=== PATIENT | female | born 1990 | race American Indian/Alaskan Native ===

== ENCOUNTER 2018-10-06 13:54 | Emergency (ER) | payer SELFPAY ==
--- NOTE | 2018-10-06 14:41 | Emergency Department Report ---
ED Dysuria HPI - HPI Chief Complaint: Abdominal Pain Stated Complaint: ABDOMINAL PAIN Time Seen by Provider: 10/06/18 14:15 Duration: 1 Day Location of Discomfort: Urethra (dysuria) Severity: Mild Symptoms: Dysuria: No, Frequency: No, Suprapubic Pain: No, Flank Pain: No, Fever: No, Hematuria: No, Abdominal Pain: No, Previous UTI's: No Other History: History this 28-year-old female who comes to the ER today with vaginal discharge consistent with her usual yeast infections. She is here requesting Diflucan. Her last menstrual cycle was 2 weeks ago. She is not concerned for STDs. She has no medical history is on no medications and denies alcohol drugs or tobacco. ED Review of Systems ROS: Stated complaint: ABDOMINAL PAIN Other details as noted in HPI Comment: All other systems reviewed and negative ED Past Medical Hx - Past Medical History Previous Medical History?: Yes Additional medical history: ovarian cysts - Surgical History Past Surgical History?: Yes Additional Surgical History: ovarian cyst - Medications Home Medications: Home Medications Medication Instructions Recorded Confirmed Last Taken Type Fluconazole [Diflucan TAB] 150 mg PO ONCE #1 tablet 10/06/18 Unknown Rx Dysuria Exam - Exam General: Vital signs noted. No distress. Alert and acting appropriately. Exam: Yes Moist Mucous Membranes, No CVA Tenderness, No Abdominal Tenderness, No Rigidity or Guarding ED Medical Decision Making - Medical Decision Making Labs 10/06/18 15:41 Urine Color Yellow Urine Turbidity Slightly-cloudy Urine pH 7.0 Ur Specific [place] 1.029 Urine Protein 30 mg/dl Urine Glucose (UA) Neg Urine Ketones Neg Urine Blood Neg Urine Nitrite Neg Ur Reducing Substances Not Reportable Urine Bilirubin Neg Urine Ictotest Not Reportable Urine Urobilinogen < 2.0 Ur Leukocyte Esterase Neg Urine WBC (Auto) 1.0 Urine RBC (Auto) 9.0 U Epithel Cells (Auto) 17.0 H Urine Bacteria (Auto) 1+ Urine Mucus 3+ Urine HCG, Qual Negative PT HERE REQUESTING A DIFLUCAN FOR HER USUAL VAG YEAST INFECTION. DC HOME WITH GA PLAN OF CARE Lab Results 10/06/18 Range/Units 15:41 Urine Color Yellow (Yellow) Urine Turbidity Slightly-cloudy (Clear) Urine pH 7.0 (5.0-7.0) Ur Specific [place] 1.029 (1.003-1.030) Urine Protein 30 mg/dl (Negative) mg/dL Urine Glucose (UA) Neg (Negative) mg/dL Urine Ketones Neg (Negative) mg/dL Urine Blood Neg (Negative) Urine Nitrite Neg (Negative) Ur Reducing Substances Not Reportable Urine Bilirubin Neg (Negative) Urine Ictotest Not Reportable Urine Urobilinogen < 2.0 (<2.0) mg/dL Ur Leukocyte Esterase Neg (Negative) Urine WBC (Auto) 1.0 (0.0-6.0) /HPF Urine RBC (Auto) 9.0 (0.0-6.0) /HPF U Epithel Cells (Auto) 17.0 H (0-13.0) /HPF Urine Bacteria (Auto) 1+ (Negative) /HPF Urine Mucus 3+ /HPF Urine HCG, Qual Negative (Negative) Critical care attestation.: If time is entered above; I have spent that time in minutes in the direct care of this critically ill patient, excluding procedure time. ED Disposition Clinical Impression: Vaginitis Disposition: TO HOME OR SELFCARE Is pt being admited?: No Does the pt Need Aspirin: No Condition: Stable Instructions: Vaginitis (ED) Additional Instructions: DIET TOLERATED MEDS ORDERED TODAY IN ER FOLLOW INSTRUCTIONS ON THE BOTTLE FOLLOW UP PCP WITHIN 48 HOURS TO ENSURE YOU ARE GETTING BETTER ACTIVITY TOLERATED MOTRIN OR TYLENOL FOR PAIN OR FEVER RETURN TO THE ER FOR WORSENING SYMPTOMS NOT RELIEVED BY YOUR MEDICATIONS. Prescriptions: Fluconazole [Diflucan TAB] 150 mg PO ONCE #1 tablet Referrals: ZULEIMA MAS MD [Primary Care Provider] - 3-5 Days [facility] [Outside] - 3-5 Days Time of Disposition: 16:04
[2018-10-06 15:56] LABS: HCG Qualitative,Urine Negative (Negative)
[2018-10-06 15:58] LABS: Bacteria,Urine 1+ /HPF (Negative); Bilirubin,Urine NEG (Negative); Blood,Urine NEG (Negative); Color,Urine Yellow (Yellow); Mucus,Urine 3+ /HPF; Urobilinogen,Urine < 2.0 mg/dL (<2.0)
== END 2018-10-06 16:14 | disposition home or self-care (01) ==
LOC: ED 13:54
DX: N76.0 Acute vaginitis (principal); B96.89 Other specified bacterial agents as the cause of diseases classified elsewhere; Z91.010 Allergy to peanuts; Z91.018 Allergy to other foods
CPT/HCPCS: 81001; 81025; 87591; 99283

== ENCOUNTER 2018-12-25 07:34 | Emergency (ER) | payer MEDICAID ==
[2018-12-25 08:17] LABS: Basophils % (Auto) 0.8 % (0.0-1.8); Eosinophils # (Auto) 0.1 K/mm3 (0.0-0.4); Eosinophils % (Auto) 1.4 % (0.0-4.3); Hematocrit 41.6 % (30.3-42.9); Hemoglobin 13.5 gm/dl (10.1-14.3); Lymphocytes # (Auto) 2.7 K/mm3 (1.2-5.4); Lymphocytes % (Auto) 47.8 % (13.4-35.0); Mean Corpuscular HGB Conc 33 % (30-34); Mean Corpuscular Volume 94 fl (79-97); Monocytes # (Auto) 0.5 K/mm3 (0.0-0.8); Monocytes % (Auto) 8.1 % (0.0-7.3); Platelet Count 219 K/mm3 (140-440); Red Blood Count 4.42 M/mm3 (3.65-5.03); Red Cell Distribution Width 12.5 % (13.2-15.2)
[2018-12-25] MEDS ORDERED: ZOFRAN IV ONE (08:21)
[2018-12-25] MEDS ORDERED: NACL 0.9% 1000 ML 1,000 ML IV ONE (08:21)
[2018-12-25] MEDS ORDERED: TORADOL IV ONE (08:21)
[2018-12-25 08:40] LABS: Alanine Aminotransferase 16 units/L (7-56); BUN/Creatinine Ratio 18; Blood Urea Nitrogen 11 mg/dL (7-17); Calcium 8.9 mg/dL (8.4-10.2); Hemolysis Index 23
[2018-12-25 10:02] LABS: Bilirubin,Urine NEG (Negative); Blood,Urine NEG (Negative); Color,Urine Yellow (Yellow); Mucus,Urine FEW /HPF; Protein,Urine <15 mg/dL mg/dL (Negative); Urobilinogen,Urine < 2.0 mg/dL (<2.0)
--- NOTE | 2018-12-25 10:36 | Cat Scan Report ---
CT ABDOMEN AND PELVIS WITH CONTRAST HISTORY: Right lower quadrant abdominal pain with rebound COMPARISON: None. TECHNIQUE: Axial CT images were obtained through the abdomen and pelvis after 100 cc of Omnipaque 300 intravenously. Sagittal and coronal reformatted images. All CT scans at this location are performed using CT dose reduction for ALARA by means of automated exposure control. FINDINGS: CT ABDOMEN: Lung Bases: Clear. Liver: No significant abnormality. Biliary: No significant abnormality. Spleen: No significant abnormality. Unenlarged. Pancreas: No significant abnormality. Adrenals: No significant abnormality. Kidneys: There is mild bilateral renal ectopia. 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 There is normal enhancement of both kidneys otherwise. No focal lesion or hydronephrosis. Lymphatics: No lymphadenopathy. Vasculature: No significant abnormality. Bowel/Peritoneum: No significant abnormality. No free air. No free fluid. Normal appendix. CT PELVIS: : A 2.5 x 1.6 cm left ovarian cyst is identified. The uterus and right ovary are unremarkable. Norm al bladder. Osseous Structures: No significant abnormality. Additional Findings: None IMPRESSION: 2.5 x 1.6 cm left ovarian cyst. No acute inflammatory process is identified in the right lower quadrant. Incidental mild bilateral renal ectopia. See above. Signer Name: Roddy Rodriguez Jr, MD Signed: 12/25/2018 10:32 AM Workstation Name: [id number]
--- NOTE | 2018-12-25 11:00 | Emergency Department Report ---
ED Abdominal Pain HPI - General Chief Complaint: Abdominal Pain Stated Complaint: ABD PAIN Time Seen by Provider: 12/25/18 08:21 Source: patient Mode of arrival: Ambulatory Limitations: No Limitations - History of Present Illness Initial Comments: Patient is a 28-year-old female who is presenting with some abd discomfort for approximately week. Patient states that she's had some constipation in that timeframe. Patient has several episodes of nausea and vomiting when the discomfort began. Patient states that pain became more prominent 2 days ago. Pain is located in the right lower quadrant. There is no fevers chills, nausea vomiting or diarrhea present. Patient also states she's had no dysuria vaginal discharge or abnormal vaginal bleeding. Severity scale (0 -10): 7 - Related Data Previous Rx's Medication Instructions Recorded Last Taken Type Fluconazole [Diflucan TAB] 150 mg PO ONCE #1 tablet 10/06/18 Unknown Rx Docusate Sodium [Colace] 100 mg PO BID #30 capsule 12/25/18 Unknown Rx traMADol [Ultram] 50 mg PO Q6HR PRN #12 tablet 12/25/18 Unknown Rx Allergies Allergy/AdvReac Type Severity Reaction Status Date / Time grass pollen Allergy Hives Verified 10/06/18 13:56 onion Allergy Swelling Verified 10/06/18 13:56 walnut Allergy Swelling Verified 10/06/18 13:56 ED Review of Systems ROS: Stated complaint: ABD PAIN Other details as noted in HPI Comment: All other systems reviewed and negative ED Past Medical Hx - Past Medical History Previous Medical History?: Yes Additional medical history: ovarian cysts - Surgical History Past Surgical History?: Yes Additional Surgical History: ovarian cyst; ectopic - Social History Smoking Status: Never Smoker Substance Use Type: None - Medications Home Medications: Home Medications Medication Instructions Recorded Confirmed Last Taken Type Fluconazole [Diflucan TAB] 150 mg PO ONCE #1 tablet 10/06/18 Unknown Rx Docusate Sodium [Colace] 100 mg PO BID #30 capsule 12/25/18 Unknown Rx traMADol [Ultram] 50 mg PO Q6HR PRN #12 tablet 12/25/18 Unknown Rx ED Physical Exam - General Limitations: No Limitations General appearance: alert, in no apparent distress - Head Head exam: Present: atraumatic, normocephalic - Eye Eye exam: Present: normal appearance - ENT ENT exam: Present: mucous membranes moist - Neck Neck exam: Present: normal inspection - Respiratory Respiratory exam: Present: normal lung sounds bilaterally. Absent: respiratory distress, wheezes, rales, rhonchi - Cardiovascular Cardiovascular Exam: Present: regular rate, normal rhythm, normal heart sounds. Absent: systolic murmur, diastolic murmur, rubs, gallop - GI/Abdominal GI/Abdominal exam: Present: soft, tenderness (RLQ), rebound, normal bowel sounds. Absent: distended, guarding, rigid - Extremities Exam Extremities exam: Present: normal inspection - Back Exam Back exam: Present: normal inspection - Neurological Exam Neurological exam: Present: alert, oriented X3 - Psychiatric Psychiatric exam: Present: normal affect, normal mood - Skin Skin exam: Present: warm, dry, intact, normal color. Absent: rash ED Course Vital Signs 12/25/18 12/25/18 12/25/18 07:41 09:05 09:43 Temperature 98.1 F Pulse Rate 78 Respiratory 16 16 16 Rate Blood Pressure 104/76 O2 Sat by Pulse 100 Oximetry ED Medical Decision Making - Lab Data Result diagrams: 12/25/18 07:53 12/25/18 07:53 Lab Results 12/25/18 12/25/18 12/25/18 Range/Units 07:53 07:53 07:53 WBC 5.6 (4.5-11.0) K/mm3 RBC 4.42 (3.65-5.03) M/mm3 Hgb 13.5 (10.1-14.3) gm/dl Hct 41.6 (30.3-42.9) % MCV 94 (79-97) fl MCH 31 (28-32) pg MCHC 33 (30-34) % RDW 12.5 L (13.2-15.2) % Plt Count 219 (140-440) K/mm3 Lymph % (Auto) 47.8 H (13.4-35.0) % [place] % (Auto) 8.1 H (0.0-7.3) % Eos % (Auto) 1.4 (0.0-4.3) % Baso % (Auto) 0.8 (0.0-1.8) % Lymph # 2.7 (1.2-5.4) K/mm3 [place] # 0.5 (0.0-0.8) K/mm3 Eos # 0.1 (0.0-0.4) K/mm3 Baso # 0.0 (0.0-0.1) K/mm3 Seg Neutrophils % 41.9 (40.0-70.0) % Seg Neutrophils # 2.3 (1.8-7.7) K/mm3 Sodium 137 (137-145) mmol/L Potassium 4.3 (3.6-5.0) mmol/L Chloride 100.6 (98-107) mmol/L Carbon Dioxide 25 (22-30) mmol/L Anion Gap 16 mmol/L BUN 11 (7-17) mg/dL Creatinine 0.6 L (0.7-1.2) mg/dL Estimated GFR > 60 ml/min BUN/Creatinine Ratio 18 % Glucose 96 (65-100) mg/dL Calcium 8.9 (8.4-10.2) mg/dL Total Bilirubin 0.50 (0.1-1.2) mg/dL AST 17 (5-40) units/L ALT 16 (7-56) units/L Alkaline Phosphatase 66 (35-129) units/L Total Protein 7.0 (6.3-8.2) g/dL Albumin 4.0 (3.9-5) g/dL Albumin/Globulin Ratio 1.3 % HCG, Qual Negative (Negative) Urine Color (Yellow) Urine Turbidity (Clear) Urine pH (5.0-7.0) Urine Protein (Negative) mg/dL Urine Glucose (UA) (Negative) mg/dL Urine Ketones (Negative) mg/dL Urine Blood (Negative) Urine Nitrite (Negative) Urine Bilirubin (Negative) Urine Urobilinogen (<2.0) mg/dL Ur Leukocyte Esterase (Negative) Urine WBC (Auto) (0.0-6.0) /HPF Urine RBC (Auto) (0.0-6.0) /HPF U Epithel Cells (Auto) (0-13.0) /HPF Urine Mucus /HPF 12/25/18 Range/Units 09:40 WBC (4.5-11.0) K/mm3 RBC (3.65-5.03) M/mm3 Hgb (10.1-14.3) gm/dl Hct (30.3-42.9) % MCV (79-97) fl MCH (28-32) pg MCHC (30-34) % RDW (13.2-15.2) % Plt Count (140-440) K/mm3 Lymph % (Auto) (13.4-35.0) % [place] % (Auto) (0.0-7.3) % Eos % (Auto) (0.0-4.3) % Baso % (Auto) (0.0-1.8) % Lymph # (1.2-5.4) K/mm3 [place] # (0.0-0.8) K/mm3 Eos # (0.0-0.4) K/mm3 Baso # (0.0-0.1) K/mm3 Seg Neutrophils % (40.0-70.0) % Seg Neutrophils # (1.8-7.7) K/mm3 Sodium (137-145) mmol/L Potassium (3.6-5.0) mmol/L Chloride (98-107) mmol/L Carbon Dioxide (22-30) mmol/L Anion Gap mmol/L BUN (7-17) mg/dL Creatinine (0.7-1.2) mg/dL Estimated GFR ml/min BUN/Creatinine Ratio % Glucose (65-100) mg/dL Calcium (8.4-10.2) mg/dL Total Bilirubin (0.1-1.2) mg/dL AST (5-40) units/L ALT (7-56) units/L Alkaline Phosphatase (35-129) units/L Total Protein (6.3-8.2) g/dL Albumin (3.9-5) g/dL Albumin/Globulin Ratio % HCG, Qual (Negative) Urine Color Yellow (Yellow) Urine Turbidity Clear (Clear) Urine pH 7.0 (5.0-7.0) Urine Protein <15 mg/dl (Negative) mg/dL Urine Glucose (UA) Neg (Negative) mg/dL Urine Ketones Neg (Negative) mg/dL Urine Blood Neg (Negative) Urine Nitrite Neg (Negative) Urine Bilirubin Neg (Negative) Urine Urobilinogen < 2.0 (<2.0) mg/dL Ur Leukocyte Esterase Neg (Negative) Urine WBC (Auto) 1.0 (0.0-6.0) /HPF Urine RBC (Auto) 8.0 (0.0-6.0) /HPF U Epithel Cells (Auto) 2.0 (0-13.0) /HPF Urine Mucus Few /HPF - Radiology Data [facility] [address] [place] [address] Cat Scan Report Signed Patient: DANNI CORDOBA MR#: [id number] : 1990 Acct:[id number] Age/Sex: 28 / F ADM Date: 12/25/18 Loc: ED Attending Dr: Ordering Physician: FAUSTO PINO MD Date of Service: 12/25/18 Procedure(s): CT abdomen pelvis w con Accession Number(s): [id number] cc: FAUSTO PINO MD CT ABDOMEN AND PELVIS WITH CONTRAST HISTORY: Right lower quadrant abdominal pain with rebound COMPARISON: None. TECHNIQUE: Axial CT images were obtained through the abdomen and pelvis after 100 cc of Omnipaque 300 intravenously. Sagittal and coronal reformatted images. All CT scans at this location are performed using CT dose reduction for ALARA by means of automated exposure control. FINDINGS: CT ABDOMEN: Lung Bases: Clear. Liver: No significant abnormality. Biliary: No significant abnormality. Spleen: No significant abnormality. Unenlarged. Pancreas: No significant abnormality. Adrenals: No significant abnormality. Kidneys: There is mild bilateral renal ectopia. 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 There is normal enhancement of both kidneys otherwise. No focal lesion or hydronephrosis. Lymphatics: No lymphadenopathy. Vasculature: No significant abnormality. Bowel/Peritoneum: No significant abnormality. No free air. No free fluid. Normal appendix. CT PELVIS: : A 2.5 x 1.6 cm left ovarian cyst is identified. The uterus and right ovary are unremarkable. Normal bladder. Osseous Structures: No significant abnormality. Additional Findings: None IMPRESSION: 2.5 x 1.6 cm left ovarian cyst. No acute inflammatory process is identified in the right lower quadrant. Incidental mild bilateral renal ectopia. See above. Signer Name: Roddy Miramontes Jr, MD Signed: 12/25/2018 10:32 AM Workstation Name: [id number] Transcribed By: TTR Dictated By: RODDY MIRAMONTES JR, MD Electronically Authenticated By: RODDY MIRAMONTES JR, MD Signed Date/Time: 12/25/18 1032 - Medical Decision Making The patient will be treated for some mild constipation. Patient does have a left-sided ovarian cyst and could have possibly had a right-sided ovarian cyst that ruptured causing increased pain 2 days ago. Patient be referred to [facility] for further evaluation. Patient's CT shows no surgical abnormality at this time. Patient is stable for discharge home. Critical care attestation.: If time is entered above; I have spent that time in minutes in the direct care of this critically ill patient, excluding procedure time. ED Disposition Clinical Impression: Abdominal pain Qualifiers: Abdominal location: right lower quadrant Qualified Code(s): R10.31 - Right lower quadrant pain Ovarian cyst Qualifiers: Laterality: left Qualified Code(s): N83.202 - Unspecified ovarian cyst, left side Constipation Qualifiers: Constipation type: slow transit constipation Qualified Code(s): K59.01 - Slow transit constipation Disposition: TO HOME OR SELFCARE Is pt being admited?: No Does the pt Need Aspirin: No Condition: Stable Instructions: Abdominal Pain (ED), Ovarian Cyst (ED), Constipation (ED), High Fiber Diet (ED) Referrals: TRICE CORDOBA MD [Staff Physician] - 3-5 Days Time of Disposition: 11:02
[2018-12-25 11:23] VITALS: BP 99/72
== END 2018-12-25 11:23 | disposition home or self-care (01) ==
LOC: ED 07:34
DX: N83.202 Unspecified ovarian cyst, left side (principal); K59.00 Constipation, unspecified; Z91.018 Allergy to other foods; Z79.899 Other long term (current) drug therapy
CPT/HCPCS: 36415; 74177; 80053; 81001; 84703; 85025; 96361; 96374; 96375; 99284; J1885; J2405; J7030; Q9967

== ENCOUNTER 2018-12-27 16:59 | Emergency (ER) | payer MEDICAID, OTHER ==
--- NOTE | 2018-12-27 17:11 | Event Note ---
ED Screening Note Date of service: 12/27/18 Time: 17:09 ED Screening Note: 28 y o f presents with low pelvic pain was seen friday CT scan lanbs and Urine completed still have worseing pain This initial assessment/diagnostic orders/clinical plan/treatment(s) is/are subject to change based on patients health status, clinical progression and re- assessment by fellow clinical providers in the ED. Further treatment and workup at subsequent clinical providers discretion. Patient/guardian urged not to elope from the ED as their condition may be serious if not clinically assessed and managed. Initial orders include: US ordered
--- NOTE | 2018-12-27 19:16 | Ultrasound Report ---
US transvaginal, US pelvic complete INDICATION / CLINICAL INFORMATION: pelv pain. COMPARISON: None available. FINDINGS: Transabdominal and transvaginal imaging were performed. Uterus is retroverted but otherwise unremarkable. Endometrial stripe measures 9 mm in thickness. Right ovary contains small follicular cysts. Left ovary contains a 3 cm cyst, which is slightly compl ex. No free fluid. IMPRESSION: 1. Slightly complex 3 cm left ovarian cyst. Signer Name: Ezequiel Neal MD Signed: 12/27/2018 7:11 PM Workstation Name: [id number]
[2018-12-27] MEDS ORDERED: MORPHINE IV ONE (19:45)
[2018-12-27] MEDS ORDERED: ZOFRAN IV ONE (19:45)
[2018-12-27] MEDS ORDERED: NACL 0.9% 1000 ML 1,000 ML IV ONE (19:45)
[2018-12-27] MEDS ORDERED: BENADRYL ONE (20:17)
[2018-12-27 20:42] LABS: Basophils # (Auto) 0.3 K/mm3 (0.0-0.1); Eosinophils # (Auto) 0.1 K/mm3 (0.0-0.4); Eosinophils % (Auto) 0.7 % (0.0-4.3); Hematocrit 41.8 % (30.3-42.9); Lymphocytes # (Auto) 3.3 K/mm3 (1.2-5.4); Lymphocytes % (Auto) 38.1 % (13.4-35.0); Mean Corpuscular HGB Conc 34 % (30-34); Mean Corpuscular Volume 94 fl (79-97); Monocytes # (Auto) 0.5 K/mm3 (0.0-0.8); Monocytes % (Auto) 5.3 % (0.0-7.3); Red Blood Count 4.42 M/mm3 (3.65-5.03); Red Cell Distribution Width 12.3 % (13.2-15.2)
[2018-12-27 20:43] LABS: Platelet Count 199 K/mm3 (140-440)
[2018-12-27 21:17] LABS: Alanine Aminotransferase 15 units/L (7-56); Albumin 4.1 g/dL (3.9-5); BUN/Creatinine Ratio 13; Blood Urea Nitrogen 8 mg/dL (7-17); Calcium 9.3 mg/dL (8.4-10.2); Hemolysis Index 13
--- NOTE | 2018-12-27 21:25 | Cat Scan Report ---
CT abdomen pelvis w con INDICATION: RLQ pain. TECHNIQUE: All CT scans at this location are performed using CT dose reduction for ALARA by means of automated e xposure control. COMPARISON: 12/25/2018 FINDINGS: Lung bases are clear. Liver, gallbladder, spleen and pancreas are unremarkable. Mild renal ectopia bu t no actual horseshoe kidney. Kidneys are intrinsically unremarkable. Normal adrenals. Abdominal aort a is normal in size. Pelvis Normal appendix. Left ovarian cyst appears to have increased in size, now measuring 3.4 cm. Again, no free fluid. Uterus and right ovary are negative. Urinary bladder is unremarkable. No acute skeletal lesions. IMPRESSION: 1. Left ovarian cyst has increased slightly in size, from 2.5 cm maximum diameter to 3.4 cm. 2. Normal appendix. 3. Renal ectopia, as described, but no evidence of ureteral obstruction. Signer Name: Ezequiel Neal MD Signed: 12/27/2018 9:20 PM Workstation Name: [id number]
[2018-12-27 21:27] LABS: Bilirubin,Urine NEG (Negative); Blood,Urine SM (Negative); Color,Urine Straw (Yellow); Protein,Urine <15 mg/dL mg/dL (Negative); Urobilinogen,Urine < 2.0 mg/dL (<2.0); WBC,Urine < 1.0 /HPF (0.0-6.0)
[2018-12-27] MEDS ORDERED: TORADOL IV ONE (22:49)
--- NOTE | 2018-12-28 00:59 | Emergency Department Report ---
ED Abdominal Pain HPI - General Chief Complaint: Abdominal Pain Stated Complaint: STOMACH PAIN Time Seen by Provider: 12/27/18 17:09 Source: patient Mode of arrival: Ambulatory Limitations: No Limitations - History of Present Illness Initial Comments: Patient is a [age]-year-old female with no past medical history who presents to the ED with acute onset persistence of the right lower quadrant abdominal pain with intermittent nausea and vomiting for the last 1 week, worse in the last 2 days. Patient was initially treated for the same about 2 days ago and discharged home on pain medications after being diagnosed with Ovarian cyst. Patient states that in the last 24 hours the right lower quadrant pain has worsened and that she is unable to sit still or lay down because of severe right lower quadrant pain. Patient denies vaginal bleeding, vaginal discharge, dysuria, urinary frequency and urgency, fever, chills, dizziness, headache, chest pain, low back pain, hematuria or traumatic injury. MD Complaint: abdominal pain (RLQ) -: Sudden, week(s) (1) Location: RLQ, suprapubic Radiation: RLQ, suprapubic Migration to: no migration Severity: severe Severity scale (0 -10): 9 Quality: aching, sharp Consistency: constant Improves With: nothing Worsens With: movement Associated Symptoms: denies other symptoms, nausea, vomiting. denies: diarrhea, fever, chills, constipation, hematemesis, hematochezia, melena, anorexia, other Treatments Prior to Arrival: NSAIDs - Related Data LMP Date: 12/20/18 Previous Rx's Medication Instructions Recorded Last Taken Type Fluconazole [Diflucan TAB] 150 mg PO ONCE #1 tablet 10/06/18 Unknown Rx Docusate Sodium [Colace] 100 mg PO BID #30 capsule 12/25/18 Unknown Rx traMADol [Ultram] 50 mg PO Q6HR PRN #12 tablet 12/25/18 Unknown Rx Ketorolac [Toradol] 10 mg PO Q8H PRN #20 tablet 12/28/18 Unknown Rx Ondansetron [Zofran Odt] 4 mg PO Q6HR PRN #15 tab.rapdis 12/28/18 Unknown Rx Allergies Allergy/AdvReac Type Severity Reaction Status Date / Time grass pollen Allergy Hives Verified 10/06/18 13:56 onion Allergy Swelling Verified 06/18/19 13:56 walnut Allergy Swelling Verified 10/06/18 13:56 ED Review of Systems ROS: Stated complaint: STOMACH PAIN Other details as noted in HPI Constitutional: denies: chills, fever Eyes: denies: eye pain, eye discharge, vision change ENT: denies: ear pain, throat pain Respiratory: denies: cough, shortness of breath, wheezing Cardiovascular: denies: chest pain, palpitations Endocrine: no symptoms reported Gastrointestinal: abdominal pain, nausea, vomiting. denies: diarrhea Genitourinary: denies: urgency, dysuria, discharge Musculoskeletal: denies: back pain, joint swelling, arthralgia Skin: denies: rash, lesions Neurological: denies: headache, weakness, paresthesias Psychiatric: denies: anxiety, depression Hematological/Lymphatic: denies: easy bleeding, easy bruising ED Past Medical Hx - Past Medical History Previous Medical History?: Yes Additional medical history: ovarian cysts - Surgical History Past Surgical History?: Yes Additional Surgical History: ovarian cyst; ectopic - Social History Smoking Status: Never Smoker Substance Use Type: None - Medications Home Medications: Home Medications Medication Instructions Recorded Confirmed Last Taken Type Fluconazole [Diflucan TAB] 150 mg PO ONCE #1 tablet 10/06/18 Unknown Rx Docusate Sodium [Colace] 100 mg PO BID #30 capsule 12/25/18 Unknown Rx traMADol [Ultram] 50 mg PO Q6HR PRN #12 tablet 12/25/18 Unknown Rx Ketorolac [Toradol] 10 mg PO Q8H PRN #20 tablet 12/28/18 Unknown Rx Ondansetron [Zofran Odt] 4 mg PO Q6HR PRN #15 tab.rapdis 12/28/18 Unknown Rx ED Physical Exam - General Limitations: No Limitations General appearance: alert, in no apparent distress - Head Head exam: Present: atraumatic, normocephalic, normal inspection - Eye Eye exam: Present: normal appearance, PERRL, EOMI Pupils: Present: normal accommodation - ENT ENT exam: Present: normal exam, normal orophraynx, mucous membranes moist, TM's normal bilaterally, normal external ear exam - Neck Neck exam: Present: normal inspection, full ROM - Respiratory Respiratory exam: Present: normal lung sounds bilaterally. Absent: respiratory distress, wheezes, rales, stridor, chest wall tenderness - Cardiovascular Cardiovascular Exam: Present: regular rate, normal rhythm, normal heart sounds. Absent: systolic murmur, diastolic murmur, rubs, gallop - GI/Abdominal GI/Abdominal exam: Present: soft, tenderness (RLQ tenderness), normal bowel sounds. Absent: guarding, rebound, hyperactive bowel sounds, hypoactive bowel sounds, organomegaly - Rectal Rectal exam: Present: deferred - External exam: Present: normal external exam Speculum exam: Present: cervical discharge Bi-manual exam: Present: normal bi-manual exam. Absent: cervical motion tendernes, adnexal tenderness, uterine tenderness - Extremities Exam Extremities exam: Present: normal inspection, full ROM, normal capillary refill - Back Exam Back exam: Present: normal inspection, full ROM. Absent: tenderness, CVA tenderness (R), CVA tenderness (L), muscle spasm, paraspinal tenderness - Neurological Exam Neurological exam: Present: alert, oriented X3, CN II-XII intact, normal gait, reflexes normal - Psychiatric Psychiatric exam: Present: normal affect, normal mood - Skin Skin exam: Present: warm, dry, intact, normal color. Absent: rash ED Course Vital Signs 12/27/18 12/27/18 17:16 23:14 Temperature 98.3 F Pulse Rate 79 Respiratory 18 16 Rate Blood Pressure 111/70 O2 Sat by Pulse 99 Oximetry - Reevaluation(s) Reevaluation #1: 12/28/18 00:59 This is a 28-year-old -[place] female who presented to the ED via right lower quadrant abdominal pain. In the ED, patient is alert and oriented 3 and is not in distress but appears to be in pain. Lab test results are reviewed and are all nonactionable including urinalysis. The abdomen pelvis CT scan with contrast shows a left ovarian cyst that has increased slightly in size, from 2.5 cm maximum diameter to 3.4 cm. The appendix is normal in appearance. The transvaginal ultrasound shows a slightly complex 3 cm left ovarian cyst. Patient was treated in the ED for pain, and on reevaluation, patient's pain is well controlled with medications. Patient was discharged home on medications including Toradol and Zofran since the patient really has a prescription for some recently given for the same complaint 2 days ago. Patient was advised to follow-up with her primary care physician in [facility] physician in 5-7 days for reevaluation or return to the ED immediately if symptoms get worse. 12/28/18 01:05 ED Medical Decision Making - Lab Data Result diagrams: 12/27/18 20:12 12/27/18 20:12 - Radiology Data Radiology results: report reviewed, image reviewed Findings [facility] [address] [place] [address] Cat Scan Report Signed Patient: DANNI CORDOBA MR#: [id number] : 1990 Acct:[id number] Age/Sex: 28 / F ADM Date: 12/27/18 Loc: ED Attending Dr: Ordering Physician: ARMANDO HIGGINS Date of Service: 12/27/18 Procedure(s): CT abdomen pelvis w con Accession Number(s): [id number] cc: ARMANDO HGIGINS CT abdomen pelvis w con INDICATION: RLQ pain. TECHNIQUE: All CT scans at this location are performed using CT dose reduction for ALARA by means of automated exposure control. COMPARISON: 12/25/2018 FINDINGS: Lung bases are clear. Liver, gallbladder, spleen and pancreas are unremarkable. Mild renal ectopia but no actual horseshoe kidney. Kidneys are intrinsically unremarkable. Normal adrenals. Abdominal aorta is normal in size. Pelvis Normal appendix. Left ovarian cyst appears to have increased in size, now measuring 3.4 cm. Again, no free fluid. Uterus and right ovary are negative. Urinary bladder is unremarkable. No acute skeletal lesions. IMPRESSION: 1. Left ovarian cyst has increased slightly in size, from 2.5 cm maximum diameter to 3.4 cm. 2. Normal appendix. 3. Renal ectopia, as described, but no evidence of ureteral obstruction. Signer Name: Ezequiel Neal MD Signed: 12/27/2018 9:20 PM Workstation Name: [id number] Transcribed By: TM Dictated By: Ezequiel Neal MD Electronically Authenticated By: Ezequiel Neal MD Signed Date/Time: 12/27/182119 DD/ 10 Findings [facility] [address] [place] [address] Ultrasound Report Signed Patient: DANNI CORDOBA MR#: [id number] : 1990 Acct:[id number] Age/Sex: 28 / F ADM Date: 12/27/18 Loc: ED Attending Dr: Ordering Physician: ARMANDO RODARTE Date of Service: 12/27/18 Procedure(s): US transvaginal Accession Number(s): [id number] cc: ARMANDO RODARTE US transvaginal, US pelvic complete INDICATION / CLINICAL INFORMATION: pelv pain. COMPARISON: None available. FINDINGS: Transabdominal and transvaginal imaging were performed. Uterus is retroverted but otherwise unremarkable. Endometrial stripe measures 9 mm in thickness. Right ovary contains small follicular cysts. Left ovary contains a 3 cm cyst, which is slightly complex. No free fluid. IMPRESSION: 1. Slightly complex 3 cm left ovarian cyst. Signer Name: Ezequiel Neal MD Signed: 12/27/2018 7:11 PM Workstation Name: [id number] Transcribed By: TM Dictated By: Ezequiel Neal MD Electronically Authenticated By: Ezequiel Neal MD Signed Date/Time: 12/27/181910 - Medical Decision Making This is a 28-year-old -[place] female who presented to the ED via right lower quadrant abdominal pain. In the ED, patient is alert and oriented 3 and is not in distress but appears to be in pain. Lab test results are reviewed and are all nonactionable including urinalysis. The abdomen pelvis CT scan with contrast shows a left ovarian cyst that has increased slightly in size, from 2.5 cm maximum diameter to 3.4 cm. The appendix is normal in appearance. The transvaginal ultrasound shows a slightly complex 3 cm left ovarian cyst. Patient was treated in the ED for pain, and on reevaluation, patient's pain is well controlled with medications. Patient was discharged home on medications including Toradol and Zofran since the patient really has a prescription for some recently given for the same complaint 2 days ago. Patient was advised to follow-up with her primary care physician in [facility] physician in 5-7 days for reevaluation or return to the ED immediately if symptoms get worse. - Differential Diagnosis Appendicitis; Ovarian cyst; PID; acute UTI; Colitis Critical care attestation.: If time is entered above; I have spent that time in minutes in the direct care of this critically ill patient, excluding procedure time. ED Disposition Clinical Impression: Abdominal pain Qualifiers: Abdominal location: right lower quadrant Qualified Code(s): R10.31 - Right lower quadrant pain Ovarian cyst Qualifiers: Laterality: left Qualified Code(s): N83.202 - Unspecified ovarian cyst, left side Disposition: TO HOME OR SELFCARE Is pt being admited?: No Does the pt Need Aspirin: No Condition: Stable Instructions: Abdominal Pain (ED), Ovarian Cyst (ED) Additional Instructions: Take medications with food, drink plenty of fluids and follow-up with your [facility] physician 7-10 days for reevaluation, or return to the ED immediately if symptoms get worse. Prescriptions: Ketorolac [Toradol] 10 mg PO Q8H PRN #20 tablet PRN Reason: Pain Ondansetron [Zofran Odt] 4 mg PO Q6HR PRN #15 tab.rapdis PRN Reason: Nausea Referrals: PRIMARY CARE, [Primary Care Provider] - 3-5 Days Time of Disposition: 00:55 Print Language: URDU
[2018-12-28 01:37] VITALS: BP 114/72
== END 2018-12-28 01:37 | disposition home or self-care (01) ==
LOC: ED 16:59
DX: N83.201 Unspecified ovarian cyst, right side (principal); Z98.890 Other specified postprocedural states; Z79.899 Other long term (current) drug therapy; Z91.018 Allergy to other foods; Z91.048 Other nonmedicinal substance allergy status
CPT/HCPCS: 36415; 74177; 76830; 76856; 80053; 81001; 83690; 84703; 85025; 96361; 96374; 96375; 99284; J1885; J2270; J2405; J7030; Q9967; J1200